=== PATIENT | male | born 1980 | race Caucasian/White ===

== ENCOUNTER 2016-04-26 16:48 | Observation (INO) | payer BC, OTHER ==
--- NOTE | 2016-04-26 17:57 | ER Document Report ---
ED Medical Screen (RME) - General Stated Complaint: KNOT BEHIND RIGHT KNEE Notes: 35 yo c/o right leg/foot swelling and pain x 1 week. had venous doppler done today. + DVT right popliteal vein. no chest pain or shortness of breath. + prolonged sitting, playing video games. pt is morbidly obese. - Related Data Allergies/Adverse Reactions: No Known Allergies Allergy (Unverified 04/26/16 17:53) Physical Exam - Vital signs Vitals: Temp Pulse Resp BP Pulse Ox 98.9 F 92 18 152/96 H 93 04/26/16 17:21 04/26/16 17:21 04/26/16 17:21 04/26/16 17:21 04/26/16 17:21 Course - Vital Signs Vital signs: Temp Pulse Resp BP Pulse Ox 98.9 F 92 18 152/96 H 93 04/26/16 17:21 04/26/16 17:21 04/26/16 17:21 04/26/16 17:21 04/26/16 17:21
[2016-04-26 18:27] LABS: ABSOLUTE BASOPHILS # (AUTO) 0.1 10^3/uL (0.0-0.2); ABSOLUTE EOSINOPHILS # (AUTO) 0.2 10^3/uL (0.0-0.6); ABSOLUTE LYMPHOCYTES (AUTO) 2.1 10^3/uL (0.5-4.7); ABSOLUTE MONOCYTES (AUTO) 0.5 10^3/uL (0.1-1.4); ABSOLUTE NEUT (AUTO) 4.4 10^3/uL (1.7-8.2); BASOPHILS % (AUTO) 0.7 % (0-2); EOSINOPHILS % (AUTO) 2.2 % (0-6); HEMATOCRIT 41.1 % (37.9-51.0); HGB HCT DIFFERENCE 0.9; LYMPHOCYTES % (AUTO) 29.3 % (13-45); MEAN CORPUSCULAR HEMOGLOBIN 30.1 pg (27.0-33.4); MEAN CORPUSCULAR VOLUME 89 fl (80-97); MONOCYTES % (AUTO) 6.7 % (3-13); RED BLOOD COUNT 4.64 10^6/uL (4.35-5.55); RED CELL DISTRIBUTION WIDTH 13.4 % (11.5-14.0); SEGMENTED NEUTROPHILS % (AUTO) 61.1 % (42-78); WHITE BLOOD COUNT 7.2 10^3/uL (4.0-10.5)
[2016-04-26 18:29] LABS: PROTHROMBIN TIME 12.6 SEC (11.4-15.4)
[2016-04-26 18:37] LABS: ALANINE AMINOTRANSFERASE 41 U/L (21-72); ALBUMIN 3.6 g/dL (3.5-5.0); ALKALINE PHOSPHATASE 64 U/L (38-126); ANION GAP 11 (5-19); ASPARTATE AMINO TRANSFERASE 18 U/L (17-59); BILIRUBIN,TOTAL 0.4 mg/dL (0.2-1.3); BLOOD UREA NITROGEN 14 mg/dL (7-20); CALCIUM 9.5 mg/dL (8.4-10.2); CARBON DIOXIDE 28 mmol/L (22-30); CHLORIDE 102 mmol/L (98-107); GLUCOSE 101 mg/dL (75-110); POTASSIUM 3.9 mmol/L (3.6-5.0); SODIUM 141.3 mmol/L (137-145); TOTAL PROTEIN 7.6 g/dL (6.3-8.2)
--- NOTE | 2016-04-26 19:43 | ER Document Report ---
ED Extremity Problem, Lower - General Chief Complaint: Leg Pain Stated Complaint: KNOT BEHIND RIGHT KNEE Mode of Arrival: Ambulatory Information source: Patient TRAVEL OUTSIDE OF THE [place] IN LAST 30 DAYS: No - HPI Patient complains to provider of: Pain, Swelling Location: Leg - RIGHT Occurred: Other - SEVERAL DAYS' SWELLING, INCREASED PAIN LAST 2 DAYS Onset/Duration: Gradual Quality of pain: Achy, Dull Severity: Moderate Context: Other - DEPENDENT EDEMA, REDUCED W/ DIURETIC THERAPY Recent injury: No Associated symptoms: Painful ambulation. denies: Chest pain, Dizzy, Fainting, Hurts to breath, Short of breath, Unable to bear weight Exacerbated by: Movement Relieved by: Rest - Related Data Allergies/Adverse Reactions: No Known Allergies Allergy (Unverified 04/26/16 17:53) Home Medications: Current Home Medications No Home Medications 04/26/16 [History] Past Medical History - General Information source: Patient - Social History Smoking Status: Never Smoker Cigarette use (# per day): No Chew tobacco use (# tins/day): No Frequency of alcohol use: None Drug Abuse: None Lives with: Family Family History: Other - NEG. DVT/P.E. Patient has suicidal ideation: No Patient has homicidal ideation: No - Past Medical History Cardiac Medical History: Reports: None Pulmonary Medical History: Reports: None EENT Medical History: Reports: None Neurological Medical History: Reports: None Endocrine Medical History: Reports: None Renal/ Medical History: Reports: None. Denies: Hx Peritoneal Dialysis Malignancy Medical History: Reports None GI Medical History: Reports: None Musculoskeltal Medical History: Reports None Skin Medical History: Reports Hx Psoriasis Psychiatric Medical History: Reports: None Surgical Hx: Negative Review of Systems - Review of Systems Constitutional: No symptoms reported EENT: No symptoms reported Cardiovascular: denies: Chest pain, Heart racing, Dyspnea, Syncope, Dizziness, Lightheaded Respiratory: No symptoms reported. denies: Cough, Short of breath Gastrointestinal: No symptoms reported Musculoskeletal: See HPI, Leg swelling Skin: No symptoms reported Neurological/Psychological: No symptoms reported Physical Exam - Vital signs Vitals: Temp Pulse Resp BP Pulse Ox 98.9 F 92 18 152/96 H 93 04/26/16 17:21 04/26/16 17:21 04/26/16 17:21 04/26/16 17:21 04/26/16 17:21 Interpretation: Hypertensive. No: Tachycardic, Hypoxic, Tachypneic, Febrile - General General appearance: Appears well, Alert In distress: None - HEENT Head: Normocephalic Eyes: Normal Conjunctiva: Normal Ears: Normal Nasal: Normal Mouth/Lips: Normal Mucous membranes: Normal - Respiratory Respiratory status: No respiratory distress Chest status: Nontender Breath sounds: Normal - Cardiovascular Rhythm: Regular Heart sounds: Normal auscultation Murmur: No - Abdominal Inspection: Morbidly Obese - Extremities General upper extremity: Normal inspection General lower extremity: Tender - R. POPLITEAL, Edema - 2+ BILAT.. No: Normal inspection - Neurological Neuro grossly intact: Yes Cognition: Normal Orientation: AAOx4 - Psychological Associated symptoms: Normal affect, Normal mood - Skin Skin Temperature: Warm Skin Moisture: Dry Skin Color: Normal Skin Turgor: Elastic Skin irregularity: other - PSORIATIC LESIONS Location of irregularity: Other - HANDS & FEET Course - Vital Signs Vital signs: Temp Pulse Resp BP Pulse Ox 97.9 F 77 15 138/79 H 99 04/26/16 23:03 04/26/16 23:03 04/26/16 23:03 04/26/16 23:03 04/26/16 23:03 - Laboratory Result Diagrams: 04/26/16 18:06 04/26/16 18:06 - Consults DR. JOHNSON Time consulted: 19:55 Consulted provider: will come to ER Discharge - Discharge Clinical Impression: Deep venous thrombosis of right popliteal vein Qualifiers: Chronicity: acute Qualified Code(s): I82.431 - Acute embolism and thrombosis of right popliteal vein Condition: Good Disposition: ADMITTED OBSERVATION Admitting Provider: Hospitalist Unit Admitted: Telemetry
[2016-04-26] MEDS ORDERED: FONDAPARINUX SODIUM INJ 10 MG/0.8 ML DISP.SYRIN SUBCUT ONE (19:57)
[2016-04-26 20:09] LABS: APPEARANCE,URINE CLEAR; BILIRUBIN,URINE NEGATIVE (NEGATIVE); GLUCOSE, URINE NEGATIVE (NEGATIVE); KETONES,URINE NEGATIVE (NEGATIVE); LEUKOCYTE ESTERASE,URINE NEGATIVE (NEGATIVE); NITRITE,URINE NEGATIVE (NEGATIVE); PROTEIN,URINE NEGATIVE (NEGATIVE); URINE SPECIFIC GRAVITY 1.017; UROBILINOGEN,URINE NEGATIVE mg/dL (<2.0)
[2016-04-26] MEDS ORDERED: ACETAMINOPHEN 325 MG TABLET PO PRN (20:09)
[2016-04-26] MEDS ORDERED: IPRATROPIUM/ALBUTEROL 0.5-2.5 MG/3 ML AMPUL NEB PRN (20:09)
[2016-04-26] MEDS ORDERED: ONDANSETRON HCL INJ/PF 4 MG/2 ML SDV IV PRN (20:09)
[2016-04-26] MEDS ORDERED: MAGNESIUM HYDROXIDE SUSP 30 ML UDCUP PO ONE (21:00)
--- NOTE | 2016-04-27 05:18 | PDOC H&P ---
History of Present Illness Admission Date/PCP: 04/26/16 20:09 NO LOCALMD Patient complains of: Right leg pain and swelling History of Present Illness: LEISA HASSAN is a 35 year old male with a past medical history of morbid obesity. Been in his usual state of health until approximately 48 hours prior to presentation noting swelling erythema and pain to his right leg primarily behind the knee. Denying trauma or previous episode though admitting prolonged sedentary state. He further denies any episode of sharp chest pain, shortness of breath nausea or vomiting. He started on Arixtra and referred to the hospitalist for admission. Past Medical History Cardiac Medical History: Reports: None Pulmonary Medical History: Reports: None EENT Medical History: Reports: None Neurological Medical History: Reports: None Endocrine Medical History: Reports: None, Obesity Renal/ Medical History: Reports: None Malignancy Medical History: Reports: None GI Medical History: Reports: None Musculoskeltal Medical History: Reports: None Skin Medical History: Reports: Psoriasis Psychiatric Medical History: Reports: None Denies: Depression Social History Information Source: Patient Lives with: Family Smoking Status: Never Smoker Frequency of Alcohol Use: None Hx Recreational Drug Use: No Drugs: None Hx Prescription Drug Abuse: No - Advance Directive Resuscitation Status: Full Code Family History Family History: Other - NEG. DVT/P.E. Parental Family History Reviewed: Yes Children Family History Reviewed: Yes Sibling(s) Family History Reviewed.: Yes Medication/Allergy Home Medications: No Home Medications 04/26/16 Allergies/Adverse Reactions: No Known Allergies Allergy (Unverified 04/26/16 17:53) Review of Systems Constitutional: ABSENT: chills, fever(s), headache(s), weight gain, weight loss Eyes: ABSENT: visual disturbances Ears: ABSENT: hearing changes Cardiovascular: ABSENT: chest pain, dyspnea on exertion, edema, orthropnea, palpitations Respiratory: ABSENT: cough, hemoptysis Gastrointestinal: ABSENT: abdominal pain, constipation, diarrhea, hematemesis, hematochezia, nausea, vomiting Genitourinary: ABSENT: dysuria, hematuria Musculoskeletal: ABSENT: joint swelling Integumentary: ABSENT: rash, wounds Neurological: ABSENT: abnormal gait, abnormal speech, confusion, dizziness, focal weakness, syncope Psychiatric: ABSENT: anxiety, depression, homidical ideation, suicidal ideation Endocrine: ABSENT: cold intolerance, heat intolerance, polydipsia, polyuria Hematologic/Lymphatic: ABSENT: easy bleeding, easy bruising Physical Exam Vital Signs: Temp Pulse Resp BP Pulse Ox 97.9 F 72 15 138/79 H 99 04/26/16 23:03 04/27/16 02:00 04/26/16 23:03 04/26/16 23:03 04/26/16 23:03 General appearance: PRESENT: cooperative, mild distress, well-developed, well- nourished Head exam: PRESENT: atraumatic, normocephalic Eye exam: PRESENT: conjunctiva pink, EOMI, PERRLA. ABSENT: scleral icterus Ear exam: PRESENT: normal external ear exam Mouth exam: PRESENT: moist, tongue midline Neck exam: ABSENT: carotid bruit, JVD, lymphadenopathy, thyromegaly Respiratory exam: PRESENT: clear to auscultation shruti. ABSENT: rales, rhonchi, wheezes Cardiovascular exam: PRESENT: RRR. ABSENT: diastolic murmur, rubs, systolic murmur Pulses: PRESENT: normal dorsalis pedis pul Vascular exam: PRESENT: normal capillary refill GI/Abdominal exam: PRESENT: normal bowel sounds, soft. ABSENT: distended, guarding, mass, organolmegaly, rebound, tenderness Rectal exam: PRESENT: deferred Extremities exam: PRESENT: full ROM, pedal edema, tenderness, +1 edema, other - right leg and foot with erythema edema and Homans sign positive. ABSENT: calf tenderness, clubbing Neurological exam: PRESENT: alert, awake, oriented to person, oriented to place , oriented to time, oriented to situation, CN II-XII grossly intact. ABSENT: motor sensory deficit Psychiatric exam: PRESENT: appropriate affect, normal mood. ABSENT: homicidal ideation, suicidal ideation Skin exam: PRESENT: dry, intact, warm. ABSENT: cyanosis, rash Assessment & Plan - Diagnosis (1) Deep venous thrombosis of right popliteal vein Qualifiers: Chronicity: acute Qualified Code(s): I82.431 - Acute embolism and thrombosis of right popliteal vein Is this a current diagnosis for this admission?: YesPlan: Patient appears hemodynamically stable he is observed on a monitored bed recommendations to remain with bedrest 12 hours, continue Arixtra transition to oral anticoagulant. Discharge planning consultation for medication assistance (2) Morbid obesity with BMI of 60.0-69.9, adult Plan: Will obtain TSH and consider dietitian consultation - Time Time Spent: 30 to 50 Minutes
[2016-04-27 08:43] LABS: HEMATOCRIT 40.8 % (37.9-51.0); HEMOGLOBIN 13.9 g/dL (13.5-17.0); HGB HCT DIFFERENCE 0.9; MEAN CORPUSCULAR HEMOGLOBIN 30.4 pg (27.0-33.4); MEAN CORPUSCULAR HGB CONC 34.1 g/dL (32.0-36.0); MEAN CORPUSCULAR VOLUME 89 fl (80-97); RED BLOOD COUNT 4.57 10^6/uL (4.35-5.55); RED CELL DISTRIBUTION WIDTH 13.7 % (11.5-14.0); WHITE BLOOD COUNT 5.3 10^3/uL (4.0-10.5)
[2016-04-27 08:47] VITALS: BP 139/82
[2016-04-27] MEDS ORDERED: DOCUSATE SODIUM 100 MG CAPSULE PO SCH (10:00)
[2016-04-27] MEDS ORDERED: MAGNESIUM HYDROXIDE SUSP 30 ML UDCUP PO SCH (10:00)
[2016-04-27] MEDS ORDERED: RIVAROXABAN 15 MG TABLET PO ONE (10:45)
--- NOTE | 2016-04-28 20:55 | PDOC DISCHARGE SUMMARY ---
General - Admit/Disc Date/PCP Admission Date/Primary Care Provider: 04/26/16 20:09 NO LOCALMD Discharge Date: 04/27/16 - Discharge Diagnosis (1) Deep venous thrombosis of right popliteal vein Is this a current diagnosis for this admission?: Yes (2) Morbid obesity with BMI of 60.0-69.9, adult Is this a current diagnosis for this admission?: Yes - Additional Information Resuscitation Status: Full Code Discharge Diet: Cardiac Discharge Activity: Activity As Tolerated Home Medications: Rivaroxaban [Xarelto 15 mg Tablet] 15 mg PO BID #42 tablet 04/27/16 History of Present Illness History of Present Illness: LEISA HASSAN is a 35 year old male Been in his usual state of health until approximately 48 hours prior to presentation noting swelling erythema and pain to his right leg primarily behind the knee. Hospital Course Hospital Course: Patient admits to having fallen in the bathtub several days prior and felt that he hurt his other leg. Patient presented for knee pain and was found to have a DVT. Discussed case with Dr. Meléndez of hematology and she agrees that Xarelto is appropriate for this patient. He will see her in follow-up and he has been sent home with oral Xarelto. Patient is in agreement with this plan. Physical Exam Vital Signs: Temp Pulse Resp BP Pulse Ox 98.3 F 74 14 139/82 H 94 04/27/16 11:58 04/27/16 11:58 04/27/16 11:58 04/27/16 07:26 04/27/16 11:58 Intake & Output 04/26/16 04/27/16 04/28/16 06:59 06:59 06:59 Intake Total 120 Output Total 2 Balance 118 Weight 197.1 kg Exam: General: Awake alert and oriented x3, no acute respiratory distress, morbidly obese HEENT: AT/NC, PERRL, EOMI, oropharynx is moist, pink, no scleral icterus, no conjunctival injection Neck: No JVD, trachea midline Chest: Clear to auscultation bilaterally, no wheezes rhonchi or rales CV: Regular rate and rhythm, normal S1 and S2, no murmur, rub, or gallop Abdomen: Soft, nontender to palpation, nondistended, active bowel sounds; no rebound, rigidity, or guarding Extremities: No cyanosis, clubbing or edema Neuro: Cranial nerves II through XII are grossly intact without focal deficits; awake alert and oriented x3 Psych: Normal mood and affect Results Laboratory Results: 04/27/16 08:28 04/27/16 04/27/16 05:53 08:28 WBC Cancelled 5.3 RBC Cancelled 4.57 Hgb Cancelled 13.9 Hct Cancelled 40.8 MCV Cancelled 89 MCH Cancelled 30.4 MCHC Cancelled 34.1 RDW Cancelled 13.7 Plt Count Cancelled 244 Qualifiers P[place]INT BEING DISCHARGED WITH ANY OF THE FOLLOWING DIAGNOSIS?: VTE (PE or DVT) VTE patient discharged on overlapping Therapy?: No Reason(s) for not prescribing Overlap Therapy:: Not indicated - On Xarelto, already received Arixtra
== END 2016-04-27 12:50 | disposition home or self-care (01) ==
LOC: ER 16:48 → EH 20:09 → 5 21:31
PROVIDERS: ADMIT Internal Medicine; ATTEND Internal Medicine
DX: I82.431 Acute embolism and thrombosis of right popliteal vein (principal); E66.01 Morbid (severe) obesity due to excess calories; Z68.44 Body mass index [BMI] 60.0-69.9, adult; Z79.01 Long term (current) use of anticoagulants
CPT/HCPCS: 99284; 96372; 36415 ×2; 84443; 85025; 85027; 85610; 80053; 81001; G0378 ×3; J3490; J1652